=== PATIENT | female | born 1990 | race African-American/Black ===

== ENCOUNTER 2021-07-29 18:07 | Emergency (ER) | payer SELFPAY ==
[~2021-07-29] VITALS: Ht 167.6 cm; Wt 64.0 kg
[2021-07-29 18:10] VITALS: BP 130/88
== END 2021-07-29 21:10 | disposition home or self-care (01) ==
LOC: ER 18:07
DX: M25.511 Pain in right shoulder (principal)
CPT/HCPCS: 73030; 99283